=== PATIENT | male | born 2000 | race Caucasian/White ===

== ENCOUNTER → 2020-08-11 | Outpatient (CLI) | payer BC ==
[~2020-08-11] MED LIST: ALBU.083IS; ALBU.083IS IH; ALBU90OI; ALBUIS; AZIT200SU PO; CODGUAEL PO; PRED10 PO; PRED15SY PO; RXDIPHSY PO
== END | disposition home or self-care (01) ==
LOC: LAB SHORT 20:49 → LAB 20:49
DX: L03.211 Cellulitis of face (principal)
CPT/HCPCS: 87070; 87077; 87186; 87205